=== PATIENT | female | born 1970 | race Caucasian/White ===

== ENCOUNTER 2020-09-19 08:00 | Day surgery (SDC) | payer OTHER ==
[~2020-09-19] VITALS: Ht 172.7 cm; Wt 105.4 kg
[~2020-09-19 08:00] MED LIST: B COMPLEX1 EACH PO; ESCITALOPRAM OXA5 MG; FLOVENT DISKU250 MCG INH; FOLIC ACID20 MG; IRON18 MG PO; OMEPRAZOLE20 MG PO; VENTOLIN HFA18 GM; VITAMIN C250 MG PO; VITAMIN D350 MCG
--- NOTE | 2020-09-19 09:49 | NUR ---
09/19/20 0949 Faby Camejo 0926 PT ARRIVED IN PACU NON RESPONSIVE TO NOXIOUS STIMULI WITH OPA AND NPA IN PLACE. 0930 PT REACTIVE. OPA AND NPA REMOVED. 0940 AT BEDSIDE TALKING WITH PT. 0945 SITTING UP IN BED SIPPING ON WATER. NO C/O'S.
--- NOTE | 2020-09-20 08:13 | OR ---
[facility] [address] [place], [place] [address] Signed DATE OF OPERATION: 09/19/2020 SURGEON: Cain Guo MD PREOPERATIVE DIAGNOSES: 1. Anemia with hemoglobin 10.7 and mean cell volume 73. 2. Heartburn, on omeprazole. 3. Irritable bowel syndrome with diarrhea as a young child. 4. Perimenopausal bleeding. POSTOPERATIVE DIAGNOSES: 1. Xopji-bs-snjjmxcu sized hiatal hernia. 2. Drrracs-ya-wpcfmcyc diverticulosis. 3. Minimal internal hemorrhoids and associated skin tags. PROCEDURES: 1. EGD with CLOtest and biopsies of the antrum. 2. Colonoscopy without biopsy. ESTIMATED BLOOD LOSS: None. INDICATIONS: Anna is a 49-year-old obese female, who was asked to see me for upper and lower endoscopy. She spoke of irritable bowel syndrome when she was young and associated this with diarrhea. She talks about her heartburn with omeprazole with good results. She is now having many perimenopausal bleeding and is anemic with a hemoglobin of 10.6 and a mean cell volume of 73. She has never had upper or lower endoscopy. There is no family history of colon cancer or polyps. She told me she quits breathing during procedures and she is very difficult to wake up. She says she is often acts loony after she wakes up. She requires CPAP at night, although she does not always wear it. As a result, we did ask for an anesthesia provider to help us stay with monitored anesthesia care. That proved to be a very del cid decision. As soon as she relaxes, the tongue goes back and she obstructs her airway. We had to hold pressure on the angle of mandible and use an oral airway to maintain her breathing and her oxygenation. In that regard, she will always need monitored anesthesia care. In the office, I gave her pamphlets on both upper and lower endoscopy. We had reviewed those together along with the risks including, but not limited to gas bloating, crampy abdominal pain, bleeding, perforation requiring surgery, and missed diagnosis. She understands the need for the IV conscious sedation. She had expressed understanding and wished to proceed. Electronically Signed By: CAIN GUO MD 09/20/20 0813 PATIENT NAME: ANNA ERWIN [facility] DATE OF : 66 REPORT #: [id number] PHYSICIAN: CAIN GUO MD PCP: MAEGAN MUNIZ PAC REPORT IS CONFIDENTIAL AND NOT TO BE RELEASED WITHOUT AUTHORIZATION [facility] [address] [place], [place] [address] Signed PROCEDURE NOTE: Anna was taken into the endoscopy suite and placed in a supine semi-recumbent position. A bite block was utilized for the case. She was given monitored anesthesia care with propofol per our nurse environmental protection officer. The adult gastroscope was introduced and advanced under direct visualization of the camera. She has a very large mandible and a very large tongue. She frequently and repeatedly pushed our oral airway out with her tongue. We were able to pass the scope down the esophagus and out into the duodenum without difficulty. Duodenum and pyloric channel were unremarkable. The stomach was unremarkable. Upon retroflexion of the scope, I can see her wvnbc-fq-hwypiwlj sized hiatal hernia. The scope had been withdrawn up through the area of the GE junction, which was compliant without stricture. She was awake and often coughing and obstructing her airway that it was very difficult to take any measurements of the hiatal hernia. The Z-line has minimal disruption. There was no irritation or Anderson's esophagus. There was no distal esophagitis. Middle and upper esophagus were unremarkable. After this, the gas was suctioned out and the gastroscope removed. Again, we took significant time controlling her airway. Anna was then rotated into the left lateral decubitus position. We had to wait and allow some of the propofol to wear off, so that she regain strength in her muscles and was able to control her airway a little better by herself. Even then, we had to hold her mandible during the procedure with an oral airway. A digital rectal exam was performed and this was unremarkable. The adult colonoscope was introduced and advanced all around into the cecum under direct visualization of the camera without difficulty. Fortunately, it was easy to pass the scope for Anna. Her prep was quite excellent. We could easily see the appendiceal orifice and the ileocecal valve. The scope was slowly withdrawn. She does have diverticula in the left and sigmoid colon. They were moderate in size, a few in number, and scattered about. The rectum itself was unremarkable. Upon retroflexion of scope, she has very minimal internal hemorrhoid tissue and associated skin tags. After this, the gas was suctioned out and the colonoscope removed. Anna tolerated procedure quite well. RECOMMENDATIONS: I will see Anna back in my office in 7 to 14 days to review her results. No specific etiology for the anemia. Cain Guo MD Electronically Signed By: CAIN GUO MD 09/20/20 0813 PATIENT NAME: ANNA ERWIN [facility] DATE OF : 66 REPORT #: [id number] PHYSICIAN: CAIN GUO MD PCP: MAEGAN MUNIZ REPORT IS CONFIDENTIAL AND NOT TO BE RELEASED WITHOUT AUTHORIZATION [address] [place] [address] Signed ALB/MODL /[id number] cc: Chart Filed Incomplete JAXSON Soto MD Copies: CHART FILED INCOMPLETE MAEGAN MUNIZ ANDREW L MD ~ Electronically Signed By: CAIN GUO MD 09/20/20812 PATIENT NAME: ANNA ERWIN [facility] RE[facility] DATE OF : 66 REPORT #: [id number] PHYSICIAN: CAIN GUO MD PCP: MAEGAN MUNIZ REPORT IS CONFIDENTIAL AND NOT TO BE RELEASED WITHOUT AUTHORIZATION
--- NOTE | 2020-09-20 13:21 | PATH ---
[facility] [address] [place], [place] [address] Signed SPECIMEN(S): A ANTRUM/PYLORUS SPECIMEN SOURCE: A. ANTRUM/PYLORUS CLINICAL HISTORY: EGD and colonoscopy. Anemia, reflux. Post: Hiatal hernia, diverticulosis, minimal internal hemorrhoids. MICROSCOPIC DESCRIPTION: Histologic sections of all submitted blocks are examined by light microscopy. These findings, together with the gross examination, support the pathologic diagnosis. FINAL PATHOLOGIC DIAGNOSIS: Stomach, antrum/pylorus, biopsy: - Antral/oxyntic mucosa with mild chronic, inactive gastritis. - Negative for Helicobacter organisms on HE stain. - Negative for dysplasia or malignancy. NAL:cml:C2NR GROSS DESCRIPTION: The specimen, labeled and designated "Vanocker, antrum/pylorus biopsy," is received in formalin and consists of one morales soft tissue fragment that measures 0.4 cm in greatest dimension. The specimen is entirely submitted in cassette (A1). VB (under the direct supervision of a pathologist) The Gross Description was prepared using a voice recognition system. The report was reviewed for accuracy; however, sound-alike word errors, addition and/or deletions may occur. If there is any question about this report, please contact Client Services. PERFORMING LABORATORY: The technical component was performed by [facility], [address] [place] [id number] (Metal Shaping Machine Operator: Lata Crandall MD; CLIA# [id number]). [facility], [address] [address] (CLIA# [id number]). Diagnostician: Yudy Donald MD Pathologist Electronically Signed 09/20/2020 PATIENT NAME: LUL ERWIN PATHOLOGY DATE OF : 66 REPORT #: [id number] PHYSICIAN: [facility] PCP: MAEGAN MUNIZ PAC REPORT IS CONFIDENTIAL AND NOT TO BE RELEASED WITHOUT AUTHORIZATION [address] [address] Signed Copies: ~ PATIENT NAME: LUL ERWIN PATHOLOGY DATE OF : 66 REPORT #: [id number] PHYSICIAN: [facility] PCP: MAEGAN MUNIZ PAC REPORT IS CONFIDENTIAL AND NOT TO BE RELEASED WITHOUT AUTHORIZATION
== END 2020-09-19 10:05 | disposition home or self-care (01) ==
LOC: OPS 08:00 → DS 08:00 → OPS 08:45 → DS 10-03 08:45
PROVIDERS: ATTEND Colon & Rectal Surgery
PROC: 0DB78ZX Excision of Stomach, Pylorus, Via Natural or Artificial Opening Endoscopic, Diagnostic (ICD-10-PCS; principal; 2020-09-19 08:45)
PROC: 0DJD8ZZ Inspection of Lower Intestinal Tract, Via Natural or Artificial Opening Endoscopic (ICD-10-PCS; 2020-09-19 08:45)
DX: K58.0 Irritable bowel syndrome with diarrhea (principal); K21.9 Gastro-esophageal reflux disease without esophagitis; K44.9 Diaphragmatic hernia without obstruction or gangrene; K29.50 Unspecified chronic gastritis without bleeding; K57.30 Diverticulosis of large intestine without perforation or abscess without bleeding; K64.8 Other hemorrhoids; D50.9 Iron deficiency anemia, unspecified; N92.4 Excessive bleeding in the premenopausal period
CPT/HCPCS: J1100; J2704; J7121

== ENCOUNTER 2023-12-21 08:02 | Day surgery (SDC) | payer OTHER ==
[2023-12-17 14:24] VITALS: BP 140/86
[~2023-12-21] VITALS: Ht 172.7 cm; Wt 113.6 kg
[~2023-12-21 08:02] MED LIST changes: +CEFAZOLIN SODIUM 2 GM/20 ML SYR IV SCH; -ESCITALOPRAM OXA5 MG; +ESCITALOPRAM OXA5 MG PO; +IBLOOD GLUCOSE TEST STRIP 1 EA TEST VI PRN; +LACTATED RINGER'S 1,000 ML IV SCH; +LIDOCAINE HCL 1% 5 ML SDV INJ ONE
[2023-12-21 08:16] VITALS: BP 147/73
[2023-12-21 09:03] LABS: BUN/CREATININE RATIO 16.49 (6.0-28.6); CALCIUM 9.6 mg/dL (8.5-10.1); CREATININE, SERUM 0.97 mg/dL (0.55-1.02)
[2023-12-21] MEDS ORDERED: fentaNYL citrate 100 MCG/2 ML VIAL ONE (09:28)
[2023-12-21] MEDS ORDERED: propofoL 200 MG/20 ML VIAL ONE (09:29)
[2023-12-21] MEDS ORDERED: ondansetron HCL 4 MG/2 ML VIAL ONE (09:29)
[2023-12-21] MEDS ORDERED: DEXAMETHASONE SOD PHOS 4 MG/ML VIAL ONE (09:29)
[2023-12-21] MEDS ORDERED: KETOROLAC TROMETHAMINE 30 MG/ML VIAL ONE (09:29)
[2023-12-21] MEDS ORDERED: ROCURONIUM BROMIDE 50 MG/5 ML SYR ONE (09:30)
[2023-12-21] MEDS ORDERED: LIDOCAINE HCL 2% 5 ML SDV ONE (09:30)
[2023-12-21] MEDS ORDERED: ACETAMINOPHEN 1,000 MG/100 ML VIAL ONE (09:30)
[2023-12-21] MEDS ORDERED: SUGAMMADEX SODIUM 200 MG/2 ML ML ONE (10:00)
--- NOTE | 2023-12-21 10:32 | NUR ---
12/21/23 1032 Michelle Yip 1019- PT PRESENTS TO PACU, SEMI GONZALEZ POSITION. PT REACTIVE TO STIMULUS. O2 AT 6L PER MASK, BREATHING EVEN AND NON LABORED. LR INFUSING TO LFA IV. ABD SOFT, NON DISTENDED. ELMER PAD IN PLACE, NO DRAINAGE AT THIS TIME. ALL MONITORS IN PLACE. 1025- PT MOVED TO ROOM AIR AT THIS TIME. DENIES PAIN AND NAUSEA, ONLY C/O SORE THROAT FROM ET TUBE. CONTINUE TO MONITOR. NO SIGNS OF DISTRESS.
[2023-12-21] MEDS ORDERED: OXYCODONE/APAP 5/325 TAB PO PRN (10:45)
[2023-12-21 10:51] VITALS: BP 141/84
--- NOTE | 2023-12-21 10:57 | NUR ---
PATIENT RETURNS FROM PACU TO ROOM 2. PATIENT IS AWAKE AND ORIENTED UPON ARRIVAL. RATES HER PAIN A 1/10 AND DESCRIBES IT CRAMPING. DENIES NAUSEA/VOMITING. HAS ALREAD VOIDED 250ML IN PACU. I WILL CHECK HER PERIPAD WHEN SHE GETS UP NEXT TO USE THE RESTROOM. BED IS IN LOWEST POSITION, CALL LIGHT WITHIN REACH. PACU REPORTS LIGHT BLEEDING TO PERIPAD.
[2023-12-21 10:58] VITALS: BP 149/83
--- NOTE | 2023-12-21 11:50 | NUR ---
PATIENT AT THIS TIME HAS MET ALL OF HER MILESTONES AND SHE EXPRESSED THE DESIRE TO GO HOME. PATIENT HAS MINIMAL BLEEDING, HAS BEEN EATING/DRINKING, HAS AMBULATED, AND HAS VOIDED. PAIN IS ALSO UNDER CONTROL. DISCHARGE INSTRUCTIONS WERE REVIEWED WITH PATIENT BY XOCHILT HERNANDEZ AND THEN DISHARGED VIA WHEELCHAIR.
[2023-12-21] MEDS ORDERED: IBUPROFEN 800 MG TAB PO SCH (14:00)
--- NOTE | 2023-12-23 18:03 | PATH ---
[facility] [address] [place] [place] [place] [address] Signed SPECIMEN(S): A ENDOMETRIAL POLYP SPECIMEN SOURCE: A. ENDOMETRIAL POLYP CLINICAL HISTORY: PMB; thickened endometrium. FINAL PATHOLOGIC DIAGNOSIS: Endometrial polyp: - Polypoid proliferative endometrium, negative for hyperplasia or atypia. JVR:sridhar MICROSCOPIC EXAMINATION: Histologic sections of all submitted blocks are examined by light microscopy. These findings, together with the gross examination, support the pathologic diagnosis. GROSS DESCRIPTION: The specimen, labeled and designated "José Miguel, endometrial polyp," is received in formalin and consists of irregular shaped pink-morales, fibromembranous tissue fragments that aggregate measure 3.0 x 1.9 x 0.2 cm. Entirely submitted in (A1). JS (under the direct supervision of a pathologist) The Gross Description was prepared using a voice recognition system. The report was reviewed for accuracy; however, sound-alike word errors, addition and/or deletions may occur. If there is any question about this report, please contact Client Services. PERFORMING LABORATORY: Technical component was performed by [facility], [address] [place] [id number] (CLIA# [id number]). Professional interpretation was performed by [facility], [address] [place] [id number] (CLIA#: [id number]). Diagnostician: Avtar Dean MD Pathologist Electronically Signed 12/23/2023 PATIENT NAME: LUL ERWIN [facility] DATE OF : 66 REPORT #: [id number] PHYSICIAN: JAROCHO YANG PCP: MAEGAN MUNIZ PAC REPORT IS CONFIDENTIAL AND NOT TO BE RELEASED WITHOUT AUTHORIZATION
== END 2023-12-21 11:55 | disposition home or self-care (01) ==
LOC: OPS 08:02 → DS 08:02 → OPS 09:30
PROVIDERS: Nurse Anesthetist, Certified Registered; ATTEND Obstetrics & Gynecology
PROC: 0UB98ZZ Excision of Uterus, Via Natural or Artificial Opening Endoscopic (ICD-10-PCS; principal; 2023-12-21 09:30)
DX: N84.0 Polyp of corpus uteri (principal); E11.9 Type 2 diabetes mellitus without complications; K21.9 Gastro-esophageal reflux disease without esophagitis; E78.5 Hyperlipidemia, unspecified; F32.2 Major depressive disorder, single episode, severe without psychotic features; Z79.899 Other long term (current) drug therapy; Z90.49 Acquired absence of other specified parts of digestive tract
CPT/HCPCS: 00952; 36415; 80048; J0131; J0690; J1100; J1885; J2001; J2405; J2704; J3010; J3490; J7121